=== PATIENT | male | born 1975 | race African-American/Black ===

== ENCOUNTER 2018-08-28 03:14 | Emergency (ER) | payer SELFPAY ==
[2018-08-28] MEDS ORDERED: ASPIRIN 81 MG TABLET, CHEWABLE PO ONE (03:58)
[2018-08-28 04:08] LABS: ABSOLUTE BASOPHILS # (AUTO) 0.1 10^3/uL (0.0-0.2); ABSOLUTE EOSINOPHILS # (AUTO) 0.6 10^3/uL (0.0-0.6); ABSOLUTE MONOCYTES (AUTO) 0.9 10^3/uL (0.1-1.4); ABSOLUTE NEUT (AUTO) 5.5 10^3/uL (1.7-8.2); EOSINOPHILS % (AUTO) 6.3 % (0-6); HEMATOCRIT 43.3 % (37.9-51.0); HEMOGLOBIN 14.6 g/dL (13.5-17.0); LYMPHOCYTES % (AUTO) 21.8 % (13-45); MEAN CORPUSCULAR HEMOGLOBIN 30.4 pg (27.0-33.4); MEAN CORPUSCULAR HGB CONC 33.7 g/dL (32.0-36.0); MEAN CORPUSCULAR VOLUME 90 fl (80-97); MONOCYTES % (AUTO) 10.4 % (3-13); PLATELET COUNT 239 10^3/uL (150-450); RED BLOOD COUNT 4.81 10^6/uL (4.35-5.55); SEGMENTED NEUTROPHILS % (AUTO) 60.5 % (42-78); TOTAL CELLS COUNTED % (AUTO) 100 %; WHITE BLOOD COUNT 9.1 10^3/uL (4.0-10.5)
--- NOTE | 2018-08-28 04:13 | ER Document Report ---
ED General - General Mode of Arrival: Ambulatory Information source: Patient TRAVEL OUTSIDE OF THE [place] IN LAST 30 DAYS: No <TOMÁS ARCE - Last Filed: 08/28/18 05:42> <RONNY WILCOX - Last Filed: 08/28/18 06:35> - General Chief Complaint: Chest Pain > 30 Stated Complaint: CHEST PAIN Time Seen by Provider: 08/28/18 04:00 Notes: Patient is a 42 year old male with HTN presents to the emergency department complaining of left sided chest pain onset yesterday. Patient states he began to have left shoulder pain around 0200 yesterday morning which he described as feeling like his shoulder was dislocated. He states he was still able to move his shoulder and the pain progressively improved. Patient states last night, he began to have heart burn that radiated into his throat which woke him from his sleep. He states he also noticed some left sided chest pain at that time. Patient states his heart burn is exacerbated when supine and describes his left sided chest pain as non radiating. He denies any neck or jaw pain, trouble breathing, nausea or vomiting. (TOMÁS ARCE) - Related Data Allergies/Adverse Reactions: No Known Allergies Allergy (Unverified 12/20/13 11:46) Past Medical History - General Information source: Patient - Social History Smoking Status: Current Every Day Smoker Cigarette use (# per day): Yes Chew tobacco use (# tins/day): No Smoking Education Provided: No Frequency of alcohol use: Social Drug Abuse: Marijuana Family History: CAD, Other - Father first [place] in his 40s. - Immunizations Immunizations up to date: Yes Hx Diphtheria, Pertussis, Tetanus Vaccination: Yes <TOMÁS ARCE - Last Filed: 08/28/18 05:42> Review of Systems - Review of Systems Constitutional: No symptoms reported EENT: No symptoms reported Cardiovascular: See HPI, Chest pain Respiratory: No symptoms reported Gastrointestinal: No symptoms reported Genitourinary: No symptoms reported Male Genitourinary: No symptoms reported Musculoskeletal: See HPI Skin: No symptoms reported Hematologic/Lymphatic: No symptoms reported Neurological/Psychological: No symptoms reported -: Yes All other systems reviewed and negative <TOMÁS ARCE - Last Filed: 08/28/18 05:42> Physical Exam <TOMÁS ARCE - Last Filed: 08/28/18 05:42> <RONNY WILCOX - Last Filed: 08/28/18 06:35> - Vital signs Vitals: Temp Pulse Resp BP Pulse Ox 98.4 F 94 16 159/118 H 97 08/28/18 03:28 08/28/18 03:28 08/28/18 03:28 08/28/18 03:28 08/28/18 03:28 - Notes Notes: GENERAL: Alert, interacts well. No acute distress. HEAD: Normocephalic, atraumatic. EYES: Pupils equal, round, and reactive to light. Extraocular movements intact. ENT: Oral mucosa moist, tongue midline. NECK: Full range of motion. Supple. Trachea midline. LUNGS: Clear to auscultation bilaterally, no wheezes, rales, or rhonchi. No respiratory distress. HEART: Regular rate and rhythm. No murmurs, gallops, or rubs. ABDOMEN: Soft, non-tender. Non-distended. Bowel sounds present in all 4 quadrants. EXTREMITIES: Moves all 4 extremities spontaneously. FROM of BUE, no pain with movement. Tender to palpation to the left pectoralis. No edema, radial and dorsalis pedis pulses 2/4 bilaterally. No cyanosis. NEUROLOGICAL: Alert and oriented x3. Normal speech. PSYCH: Normal affect, normal mood. SKIN: Warm, dry, normal turgor. No rashes or lesions noted. (TOMÁS ARCE) Course - Laboratory Result Diagrams: 08/28/18 03:56 08/28/18 03:56 <TOMÁS ARCE - Last Filed: 08/28/18 05:42> - Laboratory Result Diagrams: 08/28/18 03:56 08/28/18 03:56 <RONNY WILCOX - Last Filed: 08/28/18 06:35> - Re-evaluation Re-evalutation: 08/28/18 05:21 CBC unremarkable, CMP shows some renal failure with a creatinine of 1.32 which is new since 2015, CK is elevated at 330, CK-MB and troponin are initially negative, chest x-ray shows no acute process. Patient is being given nitroglycerin and will be reassessed. 08/28/18 05:40 Patient rechecked, nitroglycerin has not change the patient's pain whatsoever although it did decrease his blood pressure slightly. Patient now states that with moving his shoulder around it feels much better, he feels like if he stays in one place too long his pain worsens but if he moves his shoulder around it improves. We did discuss that this is very different than the initial history he gave me. Patient states that she thinks it feels better when he moves his shoulder around. Patient and I are compromising on a plan at this point, he is agreeable to have a troponin repeated at this time and if it is unchanged he will be discharged home with muscle relaxers but if it increases he will stay for a rule out. 08/28/18 06:17 Repeat troponin also negative. Heart score is 3. Given his low heart score, the changing nature of his pain and the fact that his pain improved significantly with range of motion of his left shoulder at this time I feel the patient is low risk for acute coronary syndrome, patient will be discharged home , asked to follow-up with a instrument lens generator as an outpatient and asked to return here for any new or concerning symptoms. (RONNY WILCOX) - Vital Signs Vital signs: Temp Pulse Resp BP Pulse Ox 98.4 F 97 17 176/120 H 96 08/28/18 03:28 08/28/18 05:23 08/28/18 05:23 08/28/18 05:23 08/28/18 05:23 - Laboratory Laboratory results interpreted by me: 08/28/18 08/28/18 03:56 03:56 Eosinophils % 6.3 H Chloride 108 H Creatinine 1.32 H Est GFR (Non-Af Amer) 59 L ALT 19 L Creatine Kinase 330 H - EKG Interpretation by Me Additional EKG results interpreted by me: 08/28/18 05:41 EKG shows sinus rhythm rate of 97, left axis deviation, normal intervals, no ST segment elevations or depressions, there is nonspecific T wave flattening in lead III, LVH per my interpretation. 08/28/18 06:34 Repeat EKG shows sinus rhythm at a rate of 86, left axis deviation, normal intervals, no ST segment elevations or depressions, nonspecific T wave flattening in lead III which is unchanged, LVH per my interpretation. (RONNY WILCOX) Discharge <TOMÁS ARCE - Last Filed: 08/28/18 05:42> <RONNY WILCOX - Last Filed: 08/28/18 06:35> - Discharge Clinical Impression: Left-sided chest wall pain Left shoulder pain Qualifiers: Chronicity: acute Qualified Code(s): M25.512 - Pain in left shoulder Hypertension Qualifiers: Hypertension type: unspecified Qualified Code(s): I10 - Essential (primary) hypertension Condition: Stable Disposition: HOME, SELF-CARE Additional Instructions: Chest Pain of Unclear Cause The exact cause of your chest pain isn't clear. Fortunately, there is no evidence of a dangerous medical condition. Further testing may be required to find the source of the pain. Most often, we find that this pain is coming from the chest wall -- the muscles or rib joints in the chest. But chest pain can come from the lung and lung lining, the esophagus, the heart valves or heart lining, and even the stomach or gallbladder. Rest. Eat lightly until the pain is gone. We may prescribe medicine for pain and inflammation. You should call the physician immediately if the pain radiates to the shoulder, jaw or arms; if you start to run a fever or develop a cough; or if you develop shortness of breath, or other new or alarming symptoms. Prescriptions: Cyclobenzaprine HCl [Flexeril 10 mg Tablet] 10 mg PO TIDP PRN #15 tab PRN Reason: Referrals: STEPHEN TARIQ MD [ACTIVE STAFF] - Follow up as needed Scribe Attestation: 08/28/18 06:35 I personally performed the services described in the documentation, reviewed and edited the documentation which was dictated to the scribe in my presence, and it accurately records my words and actions. (RONNY WILCOX) Scribe Documentation - Scribe Written by Jamey:: Jamey Lin, 08/28/2018 04:20 acting as scribe for :: Ana <TOMÁS ARCE - Last Filed: 08/28/18 05:42>
[2018-08-28 04:32] LABS: CREATINE KINASE MB 1.42 ng/mL (<4.55)
[2018-08-28 04:33] LABS: TROPONIN I < 0.012 ng/mL
--- NOTE | 2018-08-28 04:35 | RADIOLOGY REPORT (SQ) ---
EXAM DESCRIPTION: XR CHEST 1 VIEW COMPLETED DATE/TME: 08/28/2018 03:58 CLINICAL HISTORY: 42 years, Male, chest pain COMPARISON: 05/30/2015 chest NUMBER OF VIEWS: 1 TECHNIQUE: Frontal view the chest LIMITATIONS: None. FINDINGS: Heart size is normal. Lungs are clear. No pneumothorax. IMPRESSION: Negative chest copyright 2010 [employer]- All Rights Reserved
[2018-08-28 04:55] LABS: ANION GAP 11 (5-19); BLOOD UREA NITROGEN 18 mg/dL (7-20); CALCIUM 10.1 mg/dL (8.4-10.2); CARBON DIOXIDE 24 mmol/L (22-30); CHLORIDE 108 mmol/L (98-107); GLUCOSE 109 mg/dL (75-110); POTASSIUM 4.4 mmol/L (3.6-5.0); SODIUM 143.3 mmol/L (137-145)
[2018-08-28 04:56] LABS: ALANINE AMINOTRANSFERASE 19 U/L (21-72); ALBUMIN 4.4 g/dL (3.5-5.0); ALKALINE PHOSPHATASE 109 U/L (38-126); ASPARTATE AMINO TRANSFERASE 53 U/L (17-59); BILIRUBIN,DIRECT 0.2 mg/dL (0.0-0.4); BILIRUBIN,TOTAL 0.5 mg/dL (0.2-1.3); TOTAL PROTEIN 7.7 g/dL (6.3-8.2)
[2018-08-28 04:57] LABS: CREATINE KINASE 330 U/L (55-170)
[2018-08-28] MEDS: NITROGLYCERIN 0.4 MG/TAB 25 TAB/BOTTLE SL PRN ×2 (05:18→05:23)
[2018-08-28 06:39] VITALS: BP 151/101
--- NOTE | 2018-08-28 08:06 | EKG REPORT ---
SEVERITY:- ABNORMAL ECG - SINUS RHYTHM LEFT VENTRICULAR HYPERTROPHY : Confirmed by: Pasquale Dove MD 28-Aug-2018 08:05:37
--- NOTE | 2018-08-28 08:06 | EKG REPORT ---
SEVERITY:- ABNORMAL ECG - SINUS RHYTHM LEFT VENTRICULAR HYPERTROPHY : Confirmed by: Pasquale Dove MD 28-Aug-2018 08:05:47
== END 2018-08-28 06:42 | disposition home or self-care (01) ==
LOC: ER 03:14
DX: R07.89 Other chest pain (principal); I10 Essential (primary) hypertension; M25.512 Pain in left shoulder
CPT/HCPCS: 36415; 71045; 80053; 82550; 82553; 84484; 85025; 93005; 93010; 99285

== ENCOUNTER 2019-08-14 04:48 | Emergency (ER) | payer SELFPAY ==
[2019-08-14] MEDS ORDERED: PREDNISONE 20 MG TABLET PO ONE (05:46)
[2019-08-14] MEDS ORDERED: IPRATROPIUM/ALBUTEROL 0.5-2.5 MG/3 ML AMPUL NEB ONE ×2 (05:46→06:44)
--- NOTE | 2019-08-14 06:11 | RADIOLOGY REPORT (SQ) ---
Chest 2 view on 08/14/2019 at 5:53 AM CLINICAL INDICATION: Shortness of breath COMPARISON: 08/28/2018 FINDINGS: There is mild elevation of the right hemidiaphragm. The lungs are clear. Heart is upper limits normal for size. Hilar and mediastinal contours are within normal limits. Pulmonary vascularity is within normal limits. No bony abnormality is noted. IMPRESSION: No acute disease.
--- NOTE | 2019-08-14 06:45 | ER Document Report ---
ED Respiratory Problem - General TRAVEL OUTSIDE OF THE [place] IN LAST 30 DAYS: No <TREV GOMEZ - Last Filed: 08/14/19 08:01> <OSCAR WYATT - Last Filed: 08/14/19 11:34> - General Chief Complaint: Cold Symptoms Stated Complaint: FEVER COUGH Time Seen by Provider: 08/14/19 05:42 Notes: Patient is otherwise healthy 43-year-old male presents to the emergency department for generalized cough and congestion for the last 3 days. Voices he did have a fever T-max 101 last evening. Patient voices he has been unable to sleep all night because he "feels like I can not breathe." Patient denies any history of albuterol, COPD. Patient voices he does intermittently smoke ciga rettes. Patient denies any history of albuterol use. Patient voices he has been taking [id number] NyQuil for his cold symptoms. Patient's denying chest pain. States he just feels as though it is hard for him to take a deep breath. Patient is denying any abdominal pain, dysuria, nausea, vomiting, diarrhea. (TREV GOMEZ) - Related Data Allergies/Adverse Reactions: No Known Allergies Allergy (Verified 08/28/18 06:45) Past Medical History - Social History Smoking Status: Current Every Day Smoker Chew tobacco use (# tins/day): No Frequency of alcohol use: None Drug Abuse: None Family History: CAD, Other - Father first [place] in his 40s. Patient has suicidal ideation: No Patient has homicidal ideation: No Renal/ Medical History: Denies: Hx Peritoneal Dialysis - Immunizations Immunizations up to date: Yes Hx Diphtheria, Pertussis, Tetanus Vaccination: Yes <TREV GOMEZ - Last Filed: 08/14/19 08:01> Physical Exam <OSCAR WYATT - Last Filed: 08/14/19 11:34> - Vital signs Vitals: Temp Pulse Resp BP Pulse Ox 97.7 F 107 H 18 158/30 H 96 08/14/19 04:55 08/14/19 04:55 08/14/19 04:55 08/14/19 04:55 08/14/19 04:55 - Notes Notes: PHYSICAL EXAMINATION: GENERAL: Well-appearing, well-nourished and in no acute distress. HEAD: Atraumatic, normocephalic. EYES: Pupils equal round and reactive to light, extraocular movements intact, sclera anicteric, conjunctiva are normal. ENT: EAC clear b/l. TM's intact b/l without erythema, fluid, or perforation. Nares patent and with clear discharge. oropharynx clear without exudates. No tonsilar hypertrophy or erythema. Moist mucous membranes. No sinus tenderness. NECK: Normal range of motion, supple without lymphadenopathy LUNGS: wheezing b/l. no retractions. HEART: Regular rate and rhythm without murmurs, rubs, gallops. ABDOMEN: Soft, nontender, nondistended abdomen. No guarding, no rebound. Normal bowel sounds present. No CVA tenderness bilaterally. Musculoskeletal: FROM to passive/active. Strength 5+/5. Extremities: No cyanosis, clubbing, or edema b/l. Peripheral pulses 2+. Capillary refill less than 3 seconds. NEUROLOGICAL: Normal speech, normal gait. PSYCH: Normal mood, normal affect. SKIN: Warm, Dry, normal turgor, no rashes or lesions noted. (OSCAR WYATT) Course - Laboratory Result Diagrams: 08/14/19 07:50 08/14/19 07:50 <TREV GOMEZ - Last Filed: 08/14/19 08:01> - Laboratory Result Diagrams: 08/14/19 07:50 08/14/19 07:50 <OSCAR WYATT - Last Filed: 08/14/19 11:34> - Re-evaluation Re-evalutation: 08/14/19 06:45 Upon reassessment patient has been able to fall asleep. Patient voices he does feel "so much better." Patient is noted to the continued to be slightly tachypneic. Patient's lung sounds now show an end expiratory wheeze heard bilateral bases. I discussed 1 further DuoNeb treatment in the emergency department, patient voices agreement with this plan. 08/14/19 07:34 I have again reassessed the patient at bedside after a total of 9 mL of DuoNeb. Patient now has inspiratory and expiratory wheezes heard bilateral bases. Patient's oxygen saturation is noted to be 91% with a respiratory rate of 30. Patient voices he does feel a lot better after treatments. Voices he has been able to again a fall asleep which he has not been able to fall asleep all evening due to respiratory distress. Based on the patient's hypoxia and tachypnea I will start an IV and start magnesium at this time. Patient is already been treated with prednisone. Straight albuterol treatment ordered at this time. 08/14/19 08:01 Pt care and report transferred to Oscar Wyatt PA-C for continued care. (TREV GOMEZ) 08/14/19 09:55 I did re-eval the patient. He continues to have wheezing b/l. He remains tachycardic, tachypneic, and has hypoxia when not on oxygen via NC at 2L. Labs/imaging including CTA negative. With the report of SOB I will add bnp, trop, ekg. 08/14/19 11:29 Patient is an afebrile, well-hydrated, 43-year-old male who presents with an ac [place] URI and possible COPD exacerbation. I do suspect that patient has underlying undiagnosed COPD as he has been a chronic smoker and the wheeze that he exhibits today. He does have a productive cough. Vitals are currently acceptable without significant tachycardia, tachypnea, or hypoxia on RA. PE is otherwise unremarkable. Patient's lung sounds have improved. I did check a troponin, BNP, and EKG which were unremarkable otherwise. Pt was ambulated w/o oxygen and did not have any significant hypoxia. The initial plan was probable admission as pt remained significantly tachypneic, oxygen hitting 89%, and tachycardic, but pt has stablized well and is feeling much better. I did review with Dr. Holliday who does agree with disposition and plan. We will allow the patient to go for an outpatient trial with doxycycline. I will also send him home with steroids and an inhaler. Low suspicion for any ACS, PE, pneumothorax, pericarditis, dissection, respiratory compromise, severe dehydration, sepsis, meningitis, or other systemic emergent condition at this time. Patient is aware that condition can change from initial presentation and needs to monitor symptoms closely and seek medical attention for any acute changes. Recommend conservative measures for symptoms. Recheck with your PCM in 2-3 days. Return to the ED with any worsening/concerning symptoms otherwise as reviewed in dis charge. Patient is in agreement. (OSCAR WYATT) - Vital Signs Vital signs: Temp Pulse Resp BP Pulse Ox 97.7 F 95 20 176/116 H 94 08/14/19 04:55 08/14/19 11:28 08/14/19 11:28 08/14/19 11:01 08/14/19 11:28 - Laboratory Laboratory results interpreted by me: 08/14/19 08/14/19 07:50 07:50 WBC 13.6 H Lymph % (Auto) 7.8 L Absolute Neuts (auto) 11.2 H Seg Neutrophils % 82.5 H Glucose 121 H Discharge <TREV GOMEZ - Last Filed: 08/14/19 08:01> <OSCAR WYATT - Last Filed: 08/14/19 11:34> - Discharge Clinical Impression: COPD exacerbation Condition: Stable Disposition: HOME, SELF-CARE Additional Instructions: Maintain adequate fluid intake tylenol/ibuprofen as needed alternating every 3 hours for fever/body ache over the counter cold medication as needed for symptoms Humidified air may help Wash your hands regularly Wear a mask when coughing Monitor blood pressure- you may need to be on medicine for this so keep a log and check with your PCM* F/u: with your PCM in 2-3 days for a recheck Return to the ED with any fever, altered mental status/behavior, chest pain, palpitations, syncope, headache, neck pain/stiffness, shortness of breath, chest pains, wheezing, drooling, trouble swallowing/breathing, abdominal pain, n/v/d, rash, or worsening/concerning symptoms otherwise. Prescriptions: Prednisone [Deltasone 20 mg Tablet] 3 tab PO DAILY 5 Days tablet Doxycycline Hyclate 100 mg PO BID #20 capsule Albuterol Sulfate [Proair HFA Inhalation Aerosol 8.5 gm MDI] 2 puff IH Q4H PRN #1 mdi PRN Reason: Forms: Elevated Blood Pressure, Smoking Cessation Education Referrals: [facility] [Provider Group] - Follow up as needed
[2019-08-14] MEDS ORDERED: ALBUTEROL SULFATE 0.083% NEB 2.5 MG/3 ML AMPUL NEB ONE (07:35)
[2019-08-14] MEDS: MAGNESIUM SULFATE/D5W 1 GM/100 ML RTUPB IV SCH ×2 (07:59→08:30)
[2019-08-14 08:04] LABS: ABSOLUTE BASOPHILS # (AUTO) 0.1 10^3/uL (0.0-0.2); ABSOLUTE EOSINOPHILS # (AUTO) 0.4 10^3/uL (0.0-0.6); ABSOLUTE LYMPHOCYTES (AUTO) 1.1 10^3/uL (0.5-4.7); ABSOLUTE MONOCYTES (AUTO) 0.8 10^3/uL (0.1-1.4); ABSOLUTE NEUT (AUTO) 11.2 10^3/uL (1.7-8.2); BASOPHILS % (AUTO) 0.9 % (0-2); EOSINOPHILS % (AUTO) 2.7 % (0-6); HEMATOCRIT 44.4 % (37.9-51.0); HEMOGLOBIN 14.9 g/dL (13.5-17.0); LYMPHOCYTES % (AUTO) 7.8 % (13-45); MEAN CORPUSCULAR HEMOGLOBIN 30.1 pg (27.0-33.4); MEAN CORPUSCULAR HGB CONC 33.6 g/dL (32.0-36.0); MEAN CORPUSCULAR VOLUME 90 fl (80-97); MONOCYTES % (AUTO) 6.1 % (3-13); PLATELET COUNT 207 10^3/uL (150-450); RED BLOOD COUNT 4.95 10^6/uL (4.35-5.55); SEGMENTED NEUTROPHILS % (AUTO) 82.5 % (42-78); TOTAL CELLS COUNTED % (AUTO) 100 %; WHITE BLOOD COUNT 13.6 10^3/uL (4.0-10.5)
[2019-08-14 08:29] LABS: ALBUMIN 4.5 g/dL (3.5-5.0); ALKALINE PHOSPHATASE 83 U/L (38-126); ANION GAP 9 (5-19); ASPARTATE AMINO TRANSFERASE 27 U/L (17-59); BILIRUBIN,DIRECT 0.1 mg/dL (0.0-0.4); BILIRUBIN,TOTAL 0.6 mg/dL (0.2-1.3); BLOOD UREA NITROGEN 10 mg/dL (7-20); CALCIUM 9.6 mg/dL (8.4-10.2); CARBON DIOXIDE 26 mmol/L (22-30); CHLORIDE 104 mmol/L (98-107); GLUCOSE 121 mg/dL (75-110); POTASSIUM 3.9 mmol/L (3.6-5.0); TOTAL PROTEIN 8.1 g/dL (6.3-8.2)
--- NOTE | 2019-08-14 09:22 | RADIOLOGY REPORT (SQ) ---
EXAM DESCRIPTION: CTA CHEST COMPLETED DATE/TIME: 08/14/2019 9:04 am REASON FOR STUDY: tachy, dyspnea COMPARISON: Same day chest radiograph TECHNIQUE: CT scan of the chest performed using helical scanning technique with dynamic intravenous contrast injection. Images reviewed with lung, soft tissue and bone windows. Reconstructed coronal and sagittal MPR images reviewed. Additional 3 dimensional post-processing performed to develop Maximal Intensity Projection images (NM P). All images stored on PACS. All CT scanners at this facility use dose modulation, iterative reconstruction, and/or weight based d osing when appropriate to reduce radiation dose to as low as reasonably achievable (ALARA). [facility]: Dose Right [facility]: CareDose [facility]: Dose Right [facility]: Teradose 4D [facility]: SwarmBuild CONTRAST TYPE AND DOSE: contrast/concentration: Isovue 350.00 mg/ml; Total Contrast Delivered: 72.0 ml; Total Saline Delivered: 59.6 ml Contrast bolus optimized for the pulmonary arteries. Not diagnostic for the aorta. RENAL FUNCTION: None required. The patient is less than 50 years old. RADIATION DOSE: CT Rad equipment meets quality standard of care and radiation dose reduction techniq ues were employed. CTDIvol: 6.6 - 25.0 mGy. DLP: 934 mGy-cm. . LIMITATIONS: None. FINDINGS: LUNGS AND PLEURA: No masses, infiltrates, or pneumothorax. No pleural effusions or pleura l calcifications. AORTA AND GREAT VESSELS: No aneurysm. Contrast bolus not optimized for the aorta. HEART: No pericardial effusion. No significant coronary artery calcifications. PULMONARY ARTERIES: No emboli visualized in the main pulmonary arteries or the segmental branches. HILAR AND MEDIASTINAL STRUCTURES: No identified masses or abnormal nodes. HARDWARE: None in the chest. UPPER ABDOMEN: No significant findings. Limited exam. THYROID AND OTHER SOFT TISSUES: No masses. No adenopathy. BONES: No acute or significant finding. 3D MIPS: Confirm above findings. OTHER: No other significant finding. IMPRESSION: Negative examination for pulmonary embolism. COMMENT: Quality ID # [id number]: Final reports with documentation of one or more dose reduction techniques (e.g., Automated exposure control, adjustment of the mA and/or kV according to patient size, use of iterative reconstruction technique) TECHNICAL DOCUMENTATION: JOB ID: [id number] [employer]- All Rights Reserved Reading location - IP/workstation name: [email or web address]
[2019-08-14] MEDS ORDERED: NORMAL SALINE 1000 ML 1,000 ML IV ONE (09:58)
[2019-08-14 10:32] LABS: NT PRO BNP 42 pg/mL (<125); TROPONIN I < 0.012 ng/mL
[2019-08-14 12:20] VITALS: BP 161/99
--- NOTE | 2019-08-14 13:27 | EKG REPORT ---
SEVERITY:- ABNORMAL ECG - SINUS TACHYCARDIA LEFT VENTRICULAR HYPERTROPHY : Confirmed by: Pasquale Dove MD 14-Aug-2019 13:26:43
== END 2019-08-14 12:26 | disposition home or self-care (01) ==
LOC: ER 04:48
DX: J44.1 Chronic obstructive pulmonary disease with (acute) exacerbation (principal); R50.9 Fever, unspecified; F17.210 Nicotine dependence, cigarettes, uncomplicated
CPT/HCPCS: 93005; 36415; 85025; 80053; 84484; 83880; 71046; 71275; 93010; J3475; J7512; J7030; J7620; 94640; 96361; 96365; 99284